=== PATIENT | female | born 1975 | race Caucasian/White ===

== ENCOUNTER 2018-04-23 16:04 | Emergency (ER) | payer MEDICAID ==
[~2018-04-23] VITALS: Ht 167.6 cm; Wt 94.1 kg
[2018-04-23 16:08] VITALS: BP 138/86
--- NOTE | 2018-04-23 18:47 | NUR ---
pt ambulated to bed 7
--- NOTE | 2018-04-23 19:00 | NUR ---
ASSUMED PATIENT CARE, NURSING ASSESSMENT COMPLETED.
--- NOTE | 2018-04-23 19:09 | NUR ---
RECIEVED REPORT FROM DAY SHIFT RN
--- NOTE | 2018-04-23 19:20 | NUR ---
Dr. Nesbitt evaluating patient at bedside.
--- NOTE | 2018-04-23 19:26 | NUR ---
X-Ray at bedside.
[2018-04-23] MEDS ORDERED: KETOROLAC 30 MG/ML VIAL IM ONE (19:30)
[2018-04-23] MEDS ORDERED: ACETAMIN/CODEINE 120/12MG-5ML 5 ML UDC PO ONE (19:30)
[2018-04-23 20:19] VITALS: BP 138/86
--- NOTE | 2018-04-23 20:19 | NUR ---
Patient discharged with v/s stable. Written and verbal after care instructions given and explained. Patient alert, oriented and verbalized understanding of instructions. Ambulatory with steady gait. All questions addressed prior to discharge. ID band removed. Patient advised to follow up with PMD. Rx of AZITHROMYCIN, ALBUTEROL, AND GUAIATUSSIN given. Patient educated on indication of medication including possible reaction and side effects. Opportunity to ask questions provided and answered.
== END 2018-04-23 20:19 | disposition home or self-care (01) ==
LOC: MED 16:04
DX: J40 Bronchitis, not specified as acute or chronic (principal)
CPT/HCPCS: 71045; 96372; 99283; J1885; Q0092